=== PATIENT | male | born 1990 | race Two or more races ===

== ENCOUNTER 2019-10-02 14:32 | Emergency (ER) | payer OTHER ==
[~2019-10-02] VITALS: Ht 162.6 cm; Wt 1002.4 kg
[2019-10-03] MEDS ORDERED: CIPRO500 MG PO (09:31)
== END 2019-10-02 16:14 | disposition home or self-care (01) ==
LOC: ER 14:32
DX: S61.222A Laceration with foreign body of right middle finger without damage to nail, initial encounter (principal); W23.0XXA Caught, crushed, jammed, or pinched between moving objects, initial encounter; Y93.89 Activity, other specified; Y92.017 Garden or yard in single-family (private) house as the place of occurrence of the external cause; Y99.8 Other external cause status

== ENCOUNTER 2019-10-03 07:39 | Emergency (ER) | payer OTHER ==
[~2019-10-03] VITALS: Ht 162.6 cm; Wt 95.3 kg
[2019-10-03] MEDS ORDERED: CIPRO500 MG PO (09:31)
== END 2019-10-03 09:38 | disposition home or self-care (01) ==
LOC: ER 07:39
DX: S61.222D Laceration with foreign body of right middle finger without damage to nail, subsequent encounter (principal); W23.0XXD Caught, crushed, jammed, or pinched between moving objects, subsequent encounter

== ENCOUNTER 2019-10-10 09:47 | Emergency (ER) | payer OTHER ==
[~2019-10-10] VITALS: Ht 162.6 cm; Wt 95.3 kg
[~2019-10-10 09:47] MED LIST: CIPRO500 MG PO
== END 2019-10-10 10:20 | disposition home or self-care (01) ==
LOC: ER 09:47
DX: T81.89XA Other complications of procedures, not elsewhere classified, initial encounter (principal)